=== PATIENT | male | born 1995 | race Caucasian/White ===

== ENCOUNTER 2018-11-19 11:13 | Emergency (ER) | payer OTHER ==
[2018-11-19] MEDS: HYDROmorphone 1 MG/ML Syringe IVPUSH ONE ×2 (11:25→14:22)
--- NOTE | 2018-11-19 12:17 | EDM.PDOC ---
ED HPI GENERAL MEDICAL PROBLEM - General Chief Complaint: Lower Extremity Injury/Pain Stated Complaint: INJURY Time Seen by Provider: 11/19/18 11:20 Source of Information: Reports: Patient History Limitations: Reports: No Limitations - History of Present Illness INITIAL COMMENTS - FREE TEXT/NARRATIVE: Pt. presents to ER with complaints of R ankle pain post slip and fall on ice. Pt. was transported to ED via EMS. Extremity was splinted with vacuum splint. He was given 100mcg of fentanyl IV. He states that his pain is still at a 8 on severity scale. Pt. denies any injury elsewhere and states the trauma is isolated to the ankle, but complains of pain to the mid portion of the lower leg with palpation. He has sensation in the distal portion of the extremity. Denies striking head. No neck pain. Pt. 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 He denies any issues with anesthesia in the past. States his last oral intake was 10:30 AM. Onset: Today Location: Reports: Lower Extremity, Right Treatments PREVENTIVE MEDICINE PHYSICIAN: Reports: Splint(s) Right Ankle Pain Score (Numeric/FACES): 8 - Related Data Allergies Allergy/AdvReac Type Severity Reaction Status Date / Time shellfish derived Allergy Rash Verified 11/19/18 11:32 Home Meds: Home Meds . [No Known Home Meds] 11/19/18 [History] Past Medical History - Past Health History Medical/Surgical History: Denies Medical/Surgical History Social & Family History - Tobacco Use Smoking Status *Q: Never Smoker - Recreational Drug Use Recreational Drug Use: No Review of Systems - Review of Systems Review Of Systems: See Below Constitutional: Reports: No Symptoms Eyes: Reports: No Symptoms Ears: Reports: No Symptoms Nose: Reports: No Symptoms Mouth/Throat: Reports: No Symptoms Respiratory: Reports: No Symptoms Cardiovascular: Reports: No Symptoms GI/Abdominal: Reports: No Symptoms Genitourinary: Reports: No Symptoms Musculoskeletal: Reports: Leg Pain, Joint Pain (R ankle) Skin: Reports: No Symptoms Neurological: Reports: Tingling (Top of food/anterior ankle) ED EXAM, GENERAL - Physical Exam Exam: See Below Exam Limited By: No Limitations General Appearance: Alert, WD/WN, No Apparent Distress ED TRAUMA EXTREMITY PROCEDURES - Joint Reduction Site: Other (R trimalleolar fracture) Sedation: Conscious Sedation (See anesthesia note) Number of Attempts: 1 Post-Reduction Imaging: Acceptably Reduced Joint Reduction Complications: No Progress/Comments: Conscious sedation with anesthesia was performed. Pt. was given propofol IV. After adequate anesthesia was obtained, countertraction was applied to the foot and ankle longitudinally. Post reduction shows significant inprovement to both tibia and fibula. Course - Vital Signs Last Recorded V/S: Last Vital Signs Temp 37.2 C 11/19/18 11:20 Pulse 68 11/19/18 15:05 Resp 16 11/19/18 15:05 BP 135/72 11/19/18 15:05 Pulse Ox 99 11/19/18 15:05 - Orders/Labs/Meds Meds: Medications Discontinued Medications Generic Name Dose Route Start Last Admin Trade Name Shawnq PRN Reason Stop Dose Admin Hydrocodone Bitart/Acetaminophen 1 tab 11/19/18 14:49 11/19/18 15:01 Amalia 325-10 Mg PO 11/19/18 14:50 1 tab ONETIME ONE Administration Hydromorphone HCl 1 mg 11/19/18 11:17 11/19/18 11:25 Dilaudid IVPUSH 11/19/18 11:18 1 mg ONETIME ONE Administration Hydromorphone HCl 1 mg 11/19/18 13:29 11/19/18 14:22 Dilaudid IVPUSH 11/19/18 13:30 Not Given ONETIME ONE Hydromorphone HCl Confirm 11/19/18 13:34 11/19/18 13:30 Dilaudid Administered 11/19/18 13:35 1 mg Dose Administration 1 mg .ROUTE .STK-MED ONE Ondansetron HCl 4 mg 11/19/18 14:11 11/19/18 14:21 Zofran IVPUSH 11/19/18 14:12 4 mg ONETIME ONE Administration Propofol Confirm 11/19/18 12:51 11/19/18 14:22 Diprivan 20 Ml Administered 11/19/18 12:52 Not Given Dose 400 mg .ROUTE .STK-MED ONE - Radiology Interpretation Free Text/Narrative:: medial and distal fibula fracture on the R with displaced fracture of posterior malleolus. Questionable medial malleolus fracture as well. Post reduction is much improved. Departure - Departure Time of Disposition: 17:00 Disposition: Home, Self-Care 01 Clinical Impression: Trimalleolar fracture of ankle, closed - Discharge Information Instructions: Ankle Fracture, [id number] Referrals: PCP,Unknown [Primary Care Provider] - Forms: ED Department Discharge Additional Instructions: Keep splint on at all times. It is an unstable fracture and the splint is keeping it aligned. If you start to have increased pain, swelling, lack of sensation or tingling in the foot/leg, call the orthopedic clinic at [place] at [phone]. Otherwise, follow-up with Dr. Oliveira (orthopedics) at 12:20 PM on 11/27/18. Use crutches. Absolutely no weight bearing on the leg. Keep the extremity elevated above heart as much as possible. Amalia 10/325mg 1 tablet every 4-6 hours. You can take 1 1/2 or 2 if needed. Zofran 4 mg ODT every 6 hours as needed for nausea. - Assessment/Plan Plan: Keep splint on at all times. It is an unstable fracture and the splint is keeping it aligned. If you start to have increased pain, swelling, lack of sensation or tingling in the foot/leg, call the orthopedic clinic at [place] at [phone]. Otherwise, follow-up with Dr. Oliveira (orthopedics) at 12:20 PM on 11/27/18. Use crutches. Absolutely no weight bearing on the leg. Keep the extremity elevated above heart as much as possible. Amalia 10/325mg 1 tablet every 4-6 hours. You can take 1 1/2 or 2 if needed. Zofran 4 mg ODT every 6 hours as needed for nausea.
--- NOTE | 2018-11-19 13:04 | CR ---
[id number] RAD/RAD Ankle Right 3V Min; [id number] RAD/RAD Tibia Fibula Right EXAM: RIGHT TIBIA FIBULA 4 VIEWS, RIGHT ANKLE 3 VIEWS INDICATION: Ankle fracture. COMPARISON: None. DISCUSSION: Segmental fibular fracture involving the mid shaft and distal portions with up to one half shaft width posterior displacement of the main distal segment. Posterior malleolus fracture with significant distraction and displacement involving up to 10% of the articular surface. There is associated posterior subluxation of the talus relative to the distal tibia. No definite medial malleolus fracture, but the medial malleolus is not optimally profiled. IMPRESSION: 1. Segmental displaced distal fibula fracture. 2. Distracted and displaced posterior malleolus fracture with associated posterior subluxation of the talus. Tony Kaur MD 11/19/18 [id number] Thank you for allowing us to participate in the care of your patient.
--- NOTE | 2018-11-19 13:13 | CR ---
[id number] RAD/RAD Ankle Right 2V EXAM: RAD Ankle Right 2V CLINICAL DATA: POST REDUCTION COMPARISON: CORRELATION IS MADE WITH THE EARLIER EXAMS TODAY. FINDINGS: There is significant improvement in alignment of fracture fragments of the right tibia and fibula.. IMPRESSION: SIGNIFICANT IMPROVEMENT IN ALIGNMENT OF FRACTURE FRAGMENTS. Russ Young MD 11/19/18 [id number] Thank you for allowing us to participate in the care of your patient.
[2018-11-19] MEDS: HYDROmorphone 1 MG/ML Syringe ONE (13:30)
[2018-11-19] MEDS: Ondansetron 4 MG/2 ML SDV IVPUSH ONE (14:21)
[2018-11-19] MEDS: Propofol 200 MG/20 ML SDV ONE (14:22)
--- NOTE | 2018-11-19 14:28 | CT ---
[id number] CT/CT Ankle Right WO IV Exam: CT Ankle Right WO IV Indication:TRIMALLEOLAR FRACTURE. Comparison: Radiograph from November 19, 2017. Discussion: Acute fracture at the base of the medial malleolus. Fracture line extends in oblique manner through the medial malleolus and extends into the posterior malleolus, seen best on axial imaging. There is separation at the fracture site. This measures up to 5 mm in the posterior malleolus (series 3 image 145). Multiple small fracture fragments are interposed between the major fracture fragments of the posterior and medial malleolus. Some of these are cortical bone, including the largest of which measures 10 mm in diameter (series 3 image 148). There are additional acute fractures of the lateral malleolus and fibular diaphysis. Fibular diaphysis fracture is minimally displaced without significant separation. Distal fibular metaphysis fractures also obliquely orientated with no significant displacement or separation at the fracture site. The posterior malleolus fracture extends through the tibial plafond and, involving the tibiotalar articular surface. There is separation at the articular surface, estimated at 6 mm (series 5 image 24. There is also cortical step-off between 1 and 2 mm. There is a small fracture fragment in the anterior recess of the tibiotalar joint in addition to a ankle joint effusion. Small amount of subcutaneous air/gas anteriorly. Findings result in widening of the ankle mortise, consistent with an unstable fracture. Impression: Trimalleolar fracture with associated findings, described above. Additionally, there is an acute minimally displaced fibular diaphysis fracture. Refugio Gresham MD 11/19/18 [id number] Thank you for allowing us to participate in the care of your patient.
[2018-11-19] MEDS: Acetaminophen/HYDROcodone 325-10 MG Tab PO ONE (15:01)
== END 2018-11-19 17:10 | disposition home or self-care (01) ==
LOC: VM.ED 11:13
DX: S82.851A Displaced trimalleolar fracture of right lower leg, initial encounter for closed fracture (principal); S82.831A Other fracture of upper and lower end of right fibula, initial encounter for closed fracture; W00.0XXA Fall on same level due to ice and snow, initial encounter; Z91.013 Allergy to seafood
CPT/HCPCS: 27818; 29515; 73590-RT; 73600-RT; 73610-RT; 73700-RT; 96374; 96375; 96376; 99152; 99284-25; A9270-GY; J1170; J2405; J2704